=== PATIENT | male | born 1970 | race Caucasian/White ===

== ENCOUNTER → 2020-08-28 10:37 | Outpatient (CLI) | payer BC, SELFPAY ==
[2020-08-28 11:47] LABS: COVID19 -Nasal RAPID Negative (Negative)
== END ==
PROVIDERS: PCP Internal Medicine; Visit Provider Nurse Practitioner
DX: Z20.822 Contact with and (suspected) exposure to COVID-19 (principal); J02.9 Acute pharyngitis, unspecified
CPT/HCPCS: 87635

== ENCOUNTER → 2020-11-25 07:10 | Outpatient (CLI) | payer BC, SELFPAY ==
[2020-11-25 08:07] LABS: Alanine Aminotransferase 22 IU/L (<50); Albumin Globulin Ratio 1.4 (1.0-2.8); Alkaline Phosphatase 58 U/L (38-126); Aspartate Aminotransferase 30 IU/L (17-59); BUN Creatinine Ratio 18.6 (6-22); Bilirubin Total 0.5 mg/dL (0.2-1.3); Blood Urea Nitrogen 16 mg/dL (9-20); Calcium 9.1 mg/dL (8.4-10.2); Carbon Dioxide 24 mmol/L (22-32); Chloride 105 mmol/L (98-107); Cholesterol 221 mg/dL (140-199); Estimated Glomerular Filt Rate > 60.0 mL/min (>60); Globulin 2.8 g/dL (1.7-4.1); Glucose 99 mg/dL (70-100); HDL Cholesterol 47 mg/dL (40-60); HEMOLYSIS < 15 (0-50); LDL Cholesterol Calculated 153 mg/dL (<100); Potassium 4.3 mmol/L (3.4-5.1); Sodium 138 mmol/L (137-145); Total Protein 6.8 g/dL (6.3-8.2); Triglycerides 105 mg/dL (35-150)
[2020-11-25 10:11] LABS: Hep C Virus Ab w/Reflex Quant NEGATIVE s/c (NEGATIVE)
== END ==
PROVIDERS: PCP Internal Medicine; Referring Provider Internal Medicine; Visit Provider Internal Medicine
DX: Z00.00 Encounter for general adult medical examination without abnormal findings (principal)
CPT/HCPCS: 36415; 80053; 80061; 86803

== ENCOUNTER → 2020-11-29 16:35 | Outpatient (CLI) | payer BC, SELFPAY ==
[2020-11-30 08:14] LABS: Fecal Immunochemical Test Negative (Negative)
== END ==
PROVIDERS: PCP Internal Medicine; Referring Provider Internal Medicine; Visit Provider Internal Medicine
DX: Z12.11 Encounter for screening for malignant neoplasm of colon (principal)
CPT/HCPCS: 82274

== ENCOUNTER → 2021-11-24 09:07 | Outpatient (CLI) | payer BC, SELFPAY ==
[2021-11-24 10:38] LABS: Alanine Aminotransferase 25 IU/L (<50); Albumin Globulin Ratio 1.6 (1.0-2.8); Alkaline Phosphatase 56 U/L (38-126); Aspartate Aminotransferase 27 IU/L (17-59); Bilirubin Total 0.6 mg/dL (0.2-1.3); Blood Urea Nitrogen 16 mg/dL (9-20); Calcium 8.8 mg/dL (8.4-10.2); Carbon Dioxide 27 mmol/L (22-32); Chloride 108 mmol/L (98-107); Cholesterol 211 mg/dL (140-199); Estimated Glomerular Filt Rate > 60 mL/min (>60); Globulin 2.5 g/dL (1.7-4.1); Glucose 98 mg/dL (70-100); HDL Cholesterol 53 mg/dL (40-60); HEMOLYSIS < 15 (0-50); LDL Cholesterol Calculated 140 mg/dL (<100); Potassium 5.1 mmol/L (3.4-5.1); Sodium 138 mmol/L (137-145); Total Protein 6.5 g/dL (6.3-8.2); Triglycerides 90 mg/dL (35-150)
[2022-01-01 12:16] LABS: Fecal Immunochemical Test Negative (Negative)
== END ==
PROVIDERS: PCP Internal Medicine; Referring Provider Internal Medicine; Visit Provider Internal Medicine
DX: I10 Essential (primary) hypertension (principal); Z13.220 Encounter for screening for lipoid disorders; Z13.6 Encounter for screening for cardiovascular disorders
CPT/HCPCS: 36415; 80053; 80061; 82274

== ENCOUNTER → 2022-12-27 16:20 | Outpatient (CLI) | payer BC, SELFPAY ==
[2022-12-27 17:17] LABS: Alanine Aminotransferase 41 IU/L (<50); Albumin 4.6 g/dL (3.5-5.0); Albumin Globulin Ratio 1.5 (1.0-2.8); Alkaline Phosphatase 57 U/L (38-126); Aspartate Aminotransferase 40 IU/L (17-59); BUN Creatinine Ratio 17.6 (6-22); Bilirubin Total 0.6 mg/dL (0.2-1.3); Blood Urea Nitrogen 18 mg/dL (9-20); Calcium 8.7 mg/dL (8.4-10.2); Carbon Dioxide 25 mmol/L (22-32); Chloride 100 mmol/L (98-107); Estimated Glomerular Filt Rate > 60 mL/min (>60); Globulin 3.1 g/dL (1.7-4.1); Glucose 93 mg/dL (70-100); Potassium 4.4 mmol/L (3.4-5.1); Sodium 135 mmol/L (137-145); Total Protein 7.7 g/dL (6.3-8.2)
[2022-12-27 17:27] LABS: HEMOLYSIS 61 (0-50)
== END ==
PROVIDERS: PCP Internal Medicine; Referring Provider Internal Medicine; Visit Provider Internal Medicine
DX: I10 Essential (primary) hypertension (principal)
CPT/HCPCS: 36415; 80053

== ENCOUNTER → 2023-01-01 16:59 | Outpatient (CLI) | payer BC, SELFPAY ==
[2023-01-02 17:13] LABS: Fecal Immunochemical Test Negative (Negative)
== END ==
PROVIDERS: PCP Internal Medicine; Referring Provider Internal Medicine; Visit Provider Internal Medicine
DX: Z12.11 Encounter for screening for malignant neoplasm of colon (principal)
CPT/HCPCS: 82274

== ENCOUNTER → 2023-10-03 16:40 | Outpatient (CLI) | payer BC, SELFPAY ==
--- NOTE | 2023-10-03 | DI.MRI.S_ITS ---
PROCEDURE: MR SHOULDER RT WO CON INDICATIONS: RIGHT SHOULDER PAIN TECHNIQUE: Noncontrast oblique coronal T2 fast spin echo with fat saturation, oblique sagittal T1 spin echo and T2 fast spin echo with fat saturation, axial T1 spin echo and T2 fast spin echo with fat saturation through the shoulder. COMPARISON: [facility], CR, XR SHOULDER 2+ VIEWS RIGHT, 09/18/2023, 15:53. FINDINGS: Image quality: Excellent. Rotator cuff: In the supraspinatus, there is small area of high-grade, partial width, bursal sided tear at the footprint (series 8, image 16). Additional low grade interstitial tear at the junction of the supraspinatus and infraspinatus. The anterior fibers of the supraspinatus tendon is thin. The teres minor is unremarkable. The subscapularis is unremarkable. No muscular atrophy or muscle edema. Bones and bursae: Moderate degenerative changes acromioclavicular joint. Type 1 acromion. No os acromiale. No significant subacromial/subdeltoid bursitis. No focal chondral defect. No acute fracture. Capsule and soft tissues: Anterior superior labral tear, extending into the anterior labrum. The extra-articular biceps tendon is unremarkable. Mild tendinosis of the intra-articular biceps tendon. No significant glenohumeral effusion. No subcoracoid bursitis. IMPRESSION: 1. Small area of high grade tear of the supraspinatus. Thinning of the anterior fibers of the supraspinatus tendon. 2. Low-grade tear at the junction of the supraspinatus and the infraspinatus. 3. Moderate degenerative changes of the acromioclavicular joint. Dictated by: Cyndie Kidd M.D. on 10/03/2023 at 17:57 Approved by: Cyndie Kidd M.D. on 10/03/2023 at 18:04
== END ==
LOC: MRI 16:41
PROVIDERS: PCP Internal Medicine; Referring Provider Orthopaedic Surgery; Visit Provider Orthopaedic Surgery
DX: M75.111 Incomplete rotator cuff tear or rupture of right shoulder, not specified as traumatic (principal)
CPT/HCPCS: 73221

== ENCOUNTER 2024-11-02 15:42 | Emergency (ER) | payer BC, SELFPAY ==
[2024-11-02] VITALS (8 sets, daily range): BP systolic 137–165; BP diastolic 79–102; PULSE 53–74; RESP 14–18; TEMP 35.8–36.2; O2SAT 93–97; BMI 36.3
--- NOTE | 2024-11-02 16:20 | EKG_ITS ---
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
[2024-11-02 16:35] LABS: Add Manual Diff / Slide Review NO; Basophils Absolute Auto 0 /uL (0-100); Basophils Percent Auto 0.6 % (0-2); Eosinophils Absolute Auto 200 /uL (0-450); Eosinophils Percent Auto 2.3 % (2-4); Hemoglobin 15.2 g/dL (13.5-17.5); Lymphocytes Absolute Auto 1200 /uL (1100-4500); Lymphocytes Percent Auto 18.3 % (25-40); Mean Corpuscular HGB Conc 34.6 % (30-36); Mean Corpuscular Hemoglobin 31.5 PG (26-34); Mean Corpuscular Volume 91.2 fL (80-100); Monocytes Absolute Auto 400 /uL (0-900); Monocytes Percent Auto 6.5 % (3-14); Neutrophils Absolute Auto 4800 /uL (1500-7000); Neutrophils Percent Auto 72.3 % (50-75); Platelet Count 204 X10^3/uL (150-400); Red Blood Cell Count 4.83 X10^6/uL (4.5-5.9); Red Cell Distribution Width 12.7 % (11.6-14.8); White Blood Cell Count 6.6 X10^3/uL (4.5-11.0)
[2024-11-02 16:48] LABS: Alanine Aminotransferase 46 IU/L (<50); Albumin 4.4 g/dL (3.5-5.0); Albumin Globulin Ratio 1.6 (1.0-2.8); Alkaline Phosphatase 62 U/L (38-126); Aspartate Aminotransferase 48 IU/L (17-59); BUN Creatinine Ratio 20.5 (6-22); Bilirubin Total 1.3 mg/dL (0.2-1.3); Blood Urea Nitrogen 17 mg/dL (9-20); Calcium 9.4 mg/dL (8.4-10.2); Carbon Dioxide 20 mmol/L (22-32); Chloride 107 mmol/L (98-107); Creatine Kinase 137 U/L (55-170); Estimated Glomerular Filt Rate > 60 mL/min (>60); Globulin 2.8 g/dL (1.7-4.1); Glucose 95 mg/dL (70-99); HEMOLYSIS 19 (0-50); Lipase 35 U/L (23-300); Potassium 4.4 mmol/L (3.4-5.1); Sodium 137 mmol/L (137-145); Total Protein 7.2 g/dL (6.3-8.2)
[2024-11-02 17:01] LABS: Troponin I < 0.012 ng/mL (0.01-0.034)
[2024-11-02 17:21] LABS: Bacteria Urine None Seen; Culture Indicated Urine Cult Not Indicated; RBC Urine None Seen (0-5/HPF); Squamous Epithelial Cell Urine None Seen (0-5/HPF); Urine Volume 10mL (spun); WBC Urine None Seen (0-5/HPF)
--- NOTE | 2024-11-02 23:48 | ED.ABDPAIN ---
HPI - Abdominal Pain General Chief Complaint: Abdominal Pain Stated Complaint: back pain Time Seen by Provider: 11/02/24 23:46 Source: patient Mode of arrival: Ambulatory History of Present Illness HPI narrative: Patient is a 54-year-old male history of hypertension hyperlipidemia presenting today with back pain. Reports that they walked yesterday and cleaned boat some awkward positioning but today is having some mid to low back pain that is radiating around his abdomen. No significant numbness tingling or weakness in his lower extremities. No changes in bowel or bladder habits. No nausea or vomiting. But tachy ibuprofen throughout the day with some relief. No other symptoms. Related Data Home Medications Medication Instructions Recorded Confirmed rosuvastatin 20 mg tablet 20 mg PO DAILY High cholesterol 05/19/24 11/02/24 Previous Rx's Medication Instructions Recorded amitriptyline 25 mg tablet 25 mg PO BEDTIME #90 tabs 06/04/24 lisinopril 10 mg tablet 10 mg PO DAILY #90 tabs 06/04/24 cyclobenzaprine 5 mg tablet 5 mg PO TID PRN muscle spasm #10 11/03/24 tabs hydrocodone 5 mg-acetaminophen 325 1 tab PO Q6H PRN pain #10 tabs 25 mg tablet Allergies Allergy/AdvReac Type Severity Reaction Status Date / Time No Known Drug Allergies Allergy Verified 11/02/24 16:19 Patient History Medical History Elevated coronary artery calcium score Obstructive sleep apnea of adult GERD without esophagitis Psoriasis (~1973) Migraines (~2001) Chronic back pain (~1999) Chicken pox (~1977) Cardiac dysrhythmia, unspecified Unspecified essential hypertension (~2009) Surgical History [place] teeth removed (05/15/90) Anesthesia S/P discectomy (~2011) S/P ACL repair (~2003) Family History Father Hypertension Dementia Mother Hypertension Dementia Family/Other Hypertension Alcohol abuse Substance abuse Social History Smoking Status: Former smoker Smoking Status: Former smoker Exam Initial Vital Signs Initial Vital Signs: Vital Signs Temperature 97.2 F L 11/02/24 16:16 Pulse Rate 74 11/02/24 16:16 Respiratory Rate 17 11/02/24 16:16 Blood Pressure 165/102 H 11/02/24 16:16 Pulse Oximetry 96 11/02/24 16:16 Oxygen Delivery Method Room Air 11/02/24 16:16 GENERAL: Alert 54-year-old male appears slightly uncomfortable and in no acute distress. HEENT: Head atraumatic,EOMI, pupils reactive, face symmetric, moist mucous membranes CARDIOVASCULAR: Regular rate and rhythm without murmurs, rubs or gallops. RESPIRATORY: Breath sounds equal bilaterally, no wheezes rales or rhonchi. ABDOMEN: Soft, nontender. Normoactive bowel sounds all 4 quadrants. No guarding or rebound. BACK: No significant midline tenderness step-off : No CVA tenderness EXTREMITIES: Normal range of motion, no clubbing or edema. Neurovascularly intact NEUROLOGICAL: Alert and oriented x4.Normal gait and speech. Cranial nerves II through XII grossly intact. Able to lift both legs individually off gurney SKIN: Warm, dry, no laceration, no petechiae, no rashes or lesions. Course Orders Ordered: ED Orders 11/02/24 23:54 CT abdomen pelvis w con Stat Discontinued Medications Hydrocodone Bitart/Acetaminophen (Hydrocodone/Acet 5/325 Prepack) 1 bottle MISC DIRECTED ONE Stop: 11/03/24 01:25 Last Admin: 11/03/24 01:36 Dose: 1 bottle Documented By: CHRISTIANA Cyclobenzaprine HCl (Cyclobenzaprine 10 Mg Prepack) 1 bottle MISC DIRECTED ONE Stop: 11/03/24 01:25 Last Admin: 11/03/24 01:36 Dose: 1 bottle Documented By: CHRISTIANA Ketorolac Tromethamine (Ketorolac 30 Mg/Ml Vial) 15 mg IV NOW ONE Stop: 11/02/24 23:55 Last Admin: 11/03/24 00:09 Dose: 15 mg Documented By: CHRISTIANA Ondansetron HCl (Ondansetron 4 Mg/2 Ml Inj) 4 mg IV NOW PRN PRN Reason: Nausea And Vomiting Ondansetron HCl (Ondansetron 4 Mg Odt) 4 mg PO NOW PRN PRN Reason: Nausea And Vomiting Vital Signs Vital signs: Vital Signs - 8 hr 11/02/24 22:30 11/02/24 22:30 11/02/24 23:00 Pulse Rate 66 55 L Respiratory Rate Blood Pressure 137/79 Pulse Oximetry 96 96 Oxygen Delivery Method 11/02/24 23:01 11/02/24 23:01 11/02/24 23:30 Pulse Rate 53 L Respiratory Rate Blood Pressure 164/89 H 148/88 H Pulse Oximetry 95 Oxygen Delivery Method 11/02/24 23:30 11/03/24 00:00 11/03/24 00:00 Pulse Rate 54 L 56 L Respiratory Rate Blood Pressure 158/90 H Pulse Oximetry 95 94 Oxygen Delivery Method 11/03/24 00:30 11/03/24 01:00 11/03/24 01:30 Pulse Rate 59 L 60 55 L Respiratory Rate Blood Pressure Pulse Oximetry 95 94 94 Oxygen Delivery Method Room Air 11/03/24 01:41 11/03/24 01:41 Pulse Rate 58 L Respiratory Rate 18 Blood Pressure 160/92 H Pulse Oximetry 95 Oxygen Delivery Method Room Air MDM - Abdominal Pain Lab Data 11/02/24 16:25 11/02/24 16:25 Labs: Lab Results 11/02/24 11/02/24 Range/Units 16:25 16:46 WBC 6.6 (4.5-11.0) X10^3/uL RBC 4.83 (4.5-5.9) X10^6/uL Hgb 15.2 (13.5-17.5) g/dL Hct 44.0 (41-53) % MCV 91.2 (80-100) fL MCH 31.5 (26-34) PG MCHC 34.6 (30-36) % RDW 12.7 (11.6-14.8) % Plt Count 204 (150-400) X10^3/uL Neut % (Auto) 72.3 (50-75) % Lymph % (Auto) 18.3 L (25-40) % Cassia % (Auto) 6.5 (3-14) % Eos % (Auto) 2.3 (2-4) % Baso % (Auto) 0.6 (0-2) % Neut # (Auto) 4800 (0753-4884) /uL Lymph # (Auto) 1200 (0839-0659) /uL Cassia # (Auto) 400 (0-900) /uL Eos # (Auto) 200 (0-450) /uL Baso # (Auto) 0 (0-100) /uL Sodium 137 (137-145) mmol/L Potassium 4.4 (3.4-5.1) mmol/L Chloride 107 (98-107) mmol/L Carbon Dioxide 20 L (22-32) mmol/L BUN 17 (9-20) mg/dL Creatinine 0.83 (0.66-1.25) mg/dL Estimated GFR > 60 (>60) mL/min BUN/Creatinine Ratio 20.5 (6-22) Glucose 95 (70-99) mg/dL Calcium 9.4 (8.4-10.2) mg/dL Total Bilirubin 1.3 (0.2-1.3) mg/dL AST 48 (17-59) IU/L ALT 46 (<50) IU/L Alkaline Phosphatase 62 (38-126) U/L Total Creatine Kinase 137 (55-170) U/L Troponin I < 0.012 (0.01-0.034) ng/mL Total Protein 7.2 (6.3-8.2) g/dL Albumin 4.4 (3.5-5.0) g/dL Globulin 2.8 (1.7-4.1) g/dL Albumin/Globulin Ratio 1.6 (1.0-2.8) Lipase 35 (23-300) U/L Urine RBC None seen (0-5/HPF) Urine WBC None seen (0-5/HPF) Ur Squamous Epith Cells None seen (0-5/HPF) Urine Bacteria None seen (None) Ur Culture Indicated? Cult not indicated Vol Urine Centrifuged 10ml (spun) Point of care testing: Urine Dip Bedside Urine Glucose Negative Bedside Urine Bilirubin - Negative Bedside Urine Ketone +++ 80 Urine Specific [place] 1.025 Bedside Urine Occult Blood - Negative Bedside Urine pH 6.0 Bedside Urine Protein - Negative Bedside Urine Urobilinogen - Negative Bedside Urine Nitrite - Negative Bedside Urine Leukocytes - Negative Esterase Imaging Data CT scan - abdomen/pelvis: Radiologist's Impression: PROCEDURE: CT ABDOMEN PELVIS W CON INDICATIONS: back pain and lower ab pain TECHNIQUE: After the administration of intravenous contrast, axial sections acquired from the lung bases to the pubic symphysis. Coronal and sagittal reformats were performed. For radiation dose reduction, the following was used: automated exposure control, adjustment of mA and/or kV according to patient size. COMPARISON: None. FINDINGS: Image quality: Diagnostic. Lower Chest: No significant findings. ABDOMEN: Liver: No solid mass. Small cyst. Gallbladder: No radiopaque gallstones or wall thickening. Biliary ducts: No biliary dilation. Pancreas: No ductal dilation. Spleen: Size is within normal limits. Adrenal Glands: No adrenal nodules. Kidneys and Ureters: No hydronephrosis. No solid mass. No complex renal cystic lesion which requires follow up. Stomach and Bowel: Normal colonic caliber, without significant wall thickening. Normal appendix. Peritoneum: No abnormal intraperitoneal fluid. No free air. Ventral Wall: No significant ventral hernia. Abdominal Nodes: No retroperitoneal or mesenteric adenopathy by size criteria. Vessels: Aorta and inferior vena cava are normal in size. PELVIS: Pelvic Organs: Unremarkable. Bladder: No bladder wall thickening, accounting for underdistention. Pelvic Nodes: No enlarged lymph nodes. Miscellaneous: No inguinal hernias are seen. Bones: No aggressive osseous abnormality. Small vertebral body osteophytes. IMPRESSION: No acute inflammatory process. No free fluid. Mild degenerative changes in the spine. Dictated by: Cholo Wilburn M.D. on 11/03/2024 at 1:00 Approved by: Cholo Wilburn M.D. on 11/03/2024 at 1:06 ECG Data Attestation: I personally reviewed and interpreted this ECG as follows: Prior ECG tracings: not available for review Interpretation: Normal sinus rhythm rate 69 [place] interval 164 QRS [address] changes T-wave inversion noted in lead 3 only no priors to compare MDM Narrative Medical decision making narrative: MDM CC: Back pain abdominal pain Complicating co-morbidities: Hypertension Data collected from: Patient and Medical records reviewed: Last PCP visit Differential considered: Musculoskeletal back spasm nephrolithiasis cauda equina Exam documented above, pertinent findings include: Currently lying on right side however movement in the gurney does appear painful. It is definitely worse with movement. No significant CVA tenderness or midline tenderness. No rashes appreciated. Sensation in saddle area and lower extremities within normal limits. Lab Test results independently reviewed as above. Pertinent findings: No leukocytosis no anemia No electrolyte abnormality Normal liver enzymes and bilirubin lipase 35 Troponin is negative Urinalysis negative for UTI and hematuria Independently reviewed EKG as above No ischemia no priors to compare Imaging studies independently reviewed: CT abdomen and pelvis no acute process does show degenerative disc changes in the spine Consultations: none Treatments: Toradol Re-evaluations: Feeling a little bit better after Toradol Discussion: Patient 54-year-old male presenting today with back pain which radiates around to his abdomen. It did start after cleaning and walking some yesterday specific injury but slightly more activity than normal did not seem stressful up time on exam really nonreproducible pain no significant CVA tenderness abdomen is soft nontender no peritoneal signs nonacute abdomen. Blood work is overall reassuring without any abnormalities. It was definitely worse for him to move I think more musculoskeletal rather than anything else. Vitals are stable Discharge Plan Departure Patient Disposition: Home Clinical Impression: Back pain Instructions: Low Back Pain Activity Restrictions/Additional Instructions: *You have been diagnosed with back pain *What to do: At this time blood work and CT scanner overall reassuring. You are noted to have some arthritis in your spine. Recommend heating pad light stretching and light activity no strenuous activity or heavy lifting *Continue to take medications as directed Tylenol 650 mg every 4-6 hours for vpgb-gn-hrdrmnst pain Motrin 600 mg every 6 hours for ammz-gi-swilnyez pain [place] 1 tablet every 6 hours or at bedtime if needed for severe Cyclobenzaprine 5 mg every 8 hours if needed for muscle spasm *Follow up with your primary care provider in 2-3 days or call [phone] *Return to ER if you should have increasing pain numbness tingling weakness loss of bowel or bladder [or] any new, worsening or concerning symptoms CONTROLLED SUBSTANCE DISCHARGE (Narcotoic/benzodiazepine/Flexeril/Phenergan) 1. You have been prescribed narcotic medications, it does have acetaminophen/Tylenol/paracetamol in it, DO NOT TAKE MORE THAN 4,00mg in 24 hours of Tylenol. TRAMADOL DOES NOT CONTAIN TYLENOL 2. Please understand that we cannot provide further refills of narcotics, benzodiazepines or controlled substances through the ED and her pain management will need to be through your provider. 3. While on these medications you cannot drive or operate heavy machinery. 4. You cannot sign legal documents or perform any duties such as this. 5. As long as you're taking opiate pain medications he should also be taking a stool softener such as Colace, Dulcolax, MiraLAX or prune juice, to help avoid constipation. Prescriptions: New hydrocodone-acetaminophen 5-325 mg tablet 1 tab PO Q6H PRN (Reason: pain) Qty: 10 0RF cyclobenzaprine 5 mg tablet 5 mg PO TID PRN (Reason: muscle spasm) Qty: 10 0RF No Action amitriptyline 25 mg tablet 25 mg PO BEDTIME Qty: 90 3RF lisinopril 10 mg tablet 10 mg PO DAILY Qty: 90 3RF rosuvastatin 20 mg tablet 20 mg PO DAILY Referrals: Michael Rees MD [Primary Care Provider] - Stand Alone Forms: Patient Portal/API/Survey
--- NOTE | 2024-11-02 23:54 | DI.CT.S_ITS ---
PROCEDURE: CT ABDOMEN PELVIS W CON INDICATIONS: back pain and lower ab pain TECHNIQUE: After the administration of intravenous contrast, axial sections acquired from the lung bases to the pubic symphysis. Coronal and sagittal reformats were performed. For radiation dose reduction, the following was used: automated exposure control, adjustment of mA and/or kV according to patient size. COMPARISON: None. FINDINGS: Image quality: Diagnostic. Lower Chest: No significant findings. ABDOMEN: Liver: No solid mass. Small cyst. Gallbladder: No radiopaque gallstones or wall thickening. Biliary ducts: No biliary dilation. Pancreas: No ductal dilation. Spleen: Size is within normal limits. Adrenal Glands: No adrenal nodules. Kidneys and Ureters: No hydronephrosis. No solid mass. No complex renal cystic lesion which requires follow up. Stomach and Bowel: Normal colonic caliber, without significant wall thickening. Normal appendix. Peritoneum: No abnormal intraperitoneal fluid. No free air. Ventral Wall: No significant ventral hernia. Abdominal Nodes: No retroperitoneal or mesenteric adenopathy by size criteria. Vessels: Aorta and inferior vena cava are normal in size. PELVIS: Pelvic Organs: Unremarkable. Bladder: No bladder wall thickening, accounting for underdistention. Pelvic Nodes: No enlarged lymph nodes. Miscellaneous: No inguinal hernias are seen. Bones: No aggressive osseous abnormality. Small vertebral body osteophytes. IMPRESSION: No acute inflammatory process. No free fluid. Mild degenerative changes in the spine. Dictated by: Cholo Wilburn M.D. on 11/03/2024 at 1:00 Approved by: Cholo Wilburn M.D. on 11/03/2024 at 1:06
[2024-11-03] VITALS: BP 158/90; PULSE 56; O2SAT 94
[2024-11-03] MEDS: KETOROLAC 30 MG/ML VIAL 15 MG IV (00:09)
[2024-11-03 00:30] VITALS: PULSE 59; O2SAT 95
[2024-11-03 01:00] VITALS: PULSE 60; O2SAT 94
[2024-11-03 01:30] VITALS: PULSE 55; O2SAT 94
[2024-11-03] MEDS: CYCLOBENZAPRINE 10 MG PREPACK 1 BOTTLE MISC (01:36)
[2024-11-03] MEDS: HYDROCODONE/ACET 5/325 PREPACK 1 BOTTLE MISC (01:36)
[2024-11-03 01:41] VITALS: BP 160/92; PULSE 58; RESP 18; O2SAT 95
== END 2024-11-03 01:50 | disposition home or self-care (01) ==
PROVIDERS: Emergency Medicine; Emergency Provider Emergency Medicine; PCP Internal Medicine
DX: M54.50 Low back pain, unspecified (principal)
CPT/HCPCS: 36415; 74177; 80053; 81003; 81015; 82550; 83690; 84484; 85025; 93005; 96374; 99284; J1885; Q9967

== ENCOUNTER → 2024-12-26 14:17 | Outpatient (CLI) | payer BC, SELFPAY ==
--- NOTE | 2024-12-26 14:18 | DI.MRI.S_ITS ---
PROCEDURE: MR LUMBAR SPINE WO CON INDICATIONS: radiculopathy TECHNIQUE: Noncontrast sagittal T1 spin echo and T2 fast echo, sagittal STIR, and T2 fast spin echo through the lumbar spine. In cases with scoliosis, additional coronal T2 fast spin echo may be performed. COMPARISON: [facility], CT, CT ABDOMEN PELVIS W CON, 11/03/2024, 0:04. FINDINGS: Image quality: Excellent. Alignment and Curvature: 5 lumbar type vertebral bodies are present by CT. 4 mm of retrolisthesis of T12 on L1. 3 mm of retrolisthesis of L2 on L3 and L3 on L4. Bone Marrow: Marrow is of normal overall signal. No acute vertebral body compression fractures. Mild reactive signal throughout the endplates of the lumbar and lower thoracic spine. Spinal Cord: Conus medullaris terminates at the upper L1 level. Visualized cord demonstrates normal signal and size. Paraspinous Soft Tissues: No paravertebral masses. T12-L1: Moderate disc height loss and desiccation. Mild diffuse disc bulge. Mild canal stenosis. Mild bilateral foraminal stenosis. L1-L2: Mild bilateral facet hypertrophy. Mild epidural lipomatosis. Mild canal stenosis. Mild bilateral foraminal stenosis. L2-L3: Mild disc desiccation and diffuse disc bulge. Mild facet hypertrophy. Mild epidural lipomatosis. Mild canal stenosis. Mild bilateral foraminal stenosis. L3-L4: Moderate disc desiccation. Mild disc height loss and diffuse disc bulge. Mild bilateral facet and ligamentum flavum hypertrophy. Mild epidural lipomatosis. Mild canal stenosis. Mild bilateral foraminal stenosis. L4-L5: Moderate disc desiccation. Mild disc height loss and diffuse disc bulge. Mild bilateral facet hypertrophy. Mild canal stenosis. Mild bilateral foraminal stenosis. L5-S1: Moderate disc height loss and desiccation. Mild diffuse disc bulge. Mild canal stenosis. Mild bilateral foraminal stenosis. IMPRESSION: 1. Multilevel degenerative disc and facet disease, as well as ligamentum flavum hypertrophy and epidural lipomatosis. 2. Mild multilevel canal and foraminal stenoses. No neural impingement. Dictated by: Yuri Colin M.D. on 12/28/2024 at 13:19 Approved by: Yuri Colin M.D. on 12/28/2024 at 13:22
== END ==
PROVIDERS: PCP Internal Medicine; Referring Provider Orthopaedic Surgery Orthopaedic Surgery of the Spine; Visit Provider Orthopaedic Surgery Orthopaedic Surgery of the Spine
DX: M51.16 Intervertebral disc disorders with radiculopathy, lumbar region (principal); M47.26 Other spondylosis with radiculopathy, lumbar region; M48.061 Spinal stenosis, lumbar region without neurogenic claudication; M51.17 Intervertebral disc disorders with radiculopathy, lumbosacral region; M48.07 Spinal stenosis, lumbosacral region
CPT/HCPCS: 72148